=== PATIENT | male | born 1995 | race Caucasian/White ===

== ENCOUNTER 2018-01-12 16:26 | Emergency (ER) | payer MEDICAID ==
[~2018-01-12] VITALS: Ht 177.8 cm; Wt 75.3 kg
[2018-01-12 16:29] VITALS: BP 137/79; Ht 177.8 cm; Wt 75.3 kg
== END 2018-01-12 19:02 | disposition home or self-care (01) ==
LOC: ED 16:26
DX: B34.9 Viral infection, unspecified (principal)
CPT/HCPCS: 87804; J1885; Q0162